=== PATIENT | female | born 1975 | race African-American/Black ===

== ENCOUNTER 2018-12-13 18:20 | Emergency (ER) | payer MEDICAID ==
[~2018-12-13] VITALS: Ht 154.9 cm; Wt 61.0 kg
[2018-12-14] MEDS ORDERED: TETANUS, DIPHTHERIA, PERTUSSIS VAC/PF 0.5ML (>7YR OLD) IM ONE (01:00)
[2018-12-14] MEDS ORDERED: SILVER SULFADIAZINE 1% CREAM 25GM TOP ONE (01:00)
[2018-12-14 01:33] VITALS: BP 162/107
== END 2018-12-14 01:34 | disposition home or self-care (01) ==
LOC: ER 20:22
DX: T25.221A Burn of second degree of right foot, initial encounter (principal); X11.0XXA Contact with hot water in bath or tub, initial encounter; Y93.E1 Activity, personal bathing and showering; Y92.091 Bathroom in other non-institutional residence as the place of occurrence of the external cause; Z88.5 Allergy status to narcotic agent; Z88.6 Allergy status to analgesic agent
CPT/HCPCS: 16020; 90715; 99284